=== PATIENT | female | born 1980 | race Hispanic/Latino ===

== ENCOUNTER 2016-10-25 18:27 | Emergency (ER) | payer MEDICAID ==
[2016-10-25 19:11] LABS: Basophils % (Auto) 0.3 % (0.0-1.8); Eosinophils % (Auto) 0.3 % (0.0-4.3); Hemoglobin 12.2 gm/dl (10.1-14.3); Mean Corpuscular HGB Conc 32 % (30-34); Mean Corpuscular Hemoglobin 28 pg (28-32); Mean Corpuscular Volume 87 fl (79-97); Platelet Count 295 K/mm3 (140-440); Red Blood Count 4.37 M/mm3 (3.65-5.03); Red Cell Distribution Width 13.9 % (13.2-15.2)
[2016-10-25 19:53] LABS: Alanine Aminotransferase 16 units/L (7-56); Albumin 4.2 g/dL (3.9-5); Albumin/Globulin Ratio 1.2 %; Alkaline Phosphatase 80 units/L (35-129); Anion Gap 20 mmol/L; BUN/Creatinine Ratio 12.85; Blood Urea Nitrogen 9 mg/dL (7-17); Calcium 9.1 mg/dL (8.4-10.2); Carbon Dioxide 22 mmol/L (22-30); Chloride 100.2 mmol/L (98-107); Glucose 115 mg/dL (65-100); Lipase 17 units/L (13-60); Potassium 4.4 mmol/L (3.6-5.0); Sodium 138 mmol/L (137-145); Total Protein 7.8 g/dL (6.3-8.2)
[2016-10-25] MEDS ORDERED: MORPHINE IV ONE (19:55)
[2016-10-25] MEDS ORDERED: NACL 0.9% 1000 ML 1,000 ML IV ONE (19:55)
[2016-10-25] MEDS ORDERED: ZOFRAN IV ONE (19:55)
[2016-10-25 20:06] LABS: Bilirubin,Urine NEG (Negative); Blood,Urine LG (Negative); Ketones,Urine TR mg/dL (Negative); Leukocyte Esterase,Urine NEG (Negative); Mucus,Urine 2+ /HPF; Nitrite,Urine NEG (Negative)
[2016-10-25 20:08] LABS: RBC,Urine > 182.0 /HPF (0.0-6.0)
[2016-10-25] MEDS ORDERED: TORADOL IV ONE (20:29)
[2016-10-25] MEDS ORDERED: DILAUDID IV ONE ×2 (20:29→22:48)
[2016-10-25] MEDS ORDERED: NACL ONE (20:43)
--- NOTE | 2016-10-25 21:40 | Cat Scan Report ---
FINAL REPORT EXAM: CT ABDOMEN PELVIS W CON HISTORY: lower abd pain, blood in urine TECHNIQUE: Spiral CT scanning of the abdomen and pelvis after the uneventful administration of IV contrast. Multiplanar reformations. 100 mL Isovue IV. PRIORS: None. FINDINGS: Abdomen: Visualized lung bases grossly unremarkable. Mild dilatation of the right renal collecting system and right perinephric fat stranding without apparent right renal calcifications. Gallbladder surgically absent, with biliary duct prominence probably postsurgical. Nodular density in the left adrenal gland measures approximately 1.4 cm. Remainder of visualized abdominal parenchyma without significant abnormalities. Pelvis: Approximately 4 x 6 mm calcification noted in the right distal ureter mildly proximal to the UVJ, with diffuse ureteral dilatation. Bowel grossly unremarkable. Appendix not confidently identified and probably surgically absent. No significant free peritoneal fluid or apparent adenopathy. Abdominal aorta non-aneurysmal. Cystic focus in the left ovary measures approximately 2 cm. Small, fat-containing umbilical hernia. IMPRESSION: 1. Right distal ureteral calculus and mild right hydronephrosis. 2. Left adrenal nodule may represent adenomatous change, but is indeterminate. Followup may be warranted. 3. Probable follicular change in the left ovary.
--- NOTE | 2016-10-25 22:02 | Emergency Department Report ---
ED Abdominal Pain HPI - General Chief Complaint: Abdominal Pain Stated Complaint: ABD PAIN Time Seen by Provider: 10/25/16 20:26 Source: patient Mode of arrival: Ambulatory Limitations: No Limitations - History of Present Illness Initial Comments: 36-year-old female presented to the hospital with complaints of sudden onset of right lower quadrant and area 2 hours. Pain is constant, sharp, worse palpation and rated 10/10 in intensity. No alleviating factors. Positive nausea without vomiting. Patient denies dysuria, fever, or hematuria but urine is darker in color. No previous history of kidney stones. Severity scale (0 -10): 10 - Related Data Previous Rx's Medication Instructions Recorded Last Taken Type Ibuprofen [Motrin] 800 mg PO Q8HR PRN #30 tablet 10/25/16 Unknown Rx Ondansetron [Zofran Odt] 4 mg PO Q8HR PRN #20 tab.rapdis 10/25/16 Unknown Rx Oxycodone HCl/Acetaminophen 1 each PO Q6HR PRN #20 tablet 10/25/16 Unknown Rx [Percocet 10/325 mg] Tamsulosin [Flomax] 0.4 mg PO QDAY #7 cap 10/25/16 Unknown Rx Allergies Allergy/AdvReac Type Severity Reaction Status Date / Time No Known Allergies Allergy Unverified 10/25/16 18:52 ED Review of Systems ROS: Stated complaint: ABD PAIN Other details as noted in HPI Comment: All other systems reviewed and negative Other: Constitutional: No fevers chills Eyes: No eye pain visual changes ENT: No ear pain or throat pain Neck: Denies pain Respiratory: Denies cough wheezing shortness of breath Cardiovascular: Denies chest pain, palpitations, syncope GI: As per HPI : Denies dysuria Musculoskeletal: Denies back pain, joint swelling Skin: Denies rash, lesions, erythema Neurologic: Denies headache, numbness, weakness Psychiatric: Denies suicidal ideation, hallucinations ED Past Medical Hx - Past Medical History Previous Medical History?: No - Surgical History Past Surgical History?: Yes Hx Cholecystectomy: Yes Hx Appendectomy: Yes Additional Surgical History: Tubal ligation - Social History Smoking Status: Current Every Day Smoker Substance Use Type: None - Medications Home Medications: Home Medications Medication Instructions Recorded Confirmed Last Taken Type Ibuprofen [Motrin] 800 mg PO Q8HR PRN #30 tablet 10/25/16 Unknown Rx Ondansetron [Zofran Odt] 4 mg PO Q8HR PRN #20 tab.rapdis 10/25/16 Unknown Rx Oxycodone HCl/Acetaminophen 1 each PO Q6HR PRN #20 tablet 10/25/16 Unknown Rx [Percocet 10/325 mg] Tamsulosin [Flomax] 0.4 mg PO QDAY #7 cap 10/25/16 Unknown Rx ED Physical Exam - General Limitations: No Limitations - Other Other exam information: General: Positive distress secondary to significant pain Head exam: Atraumatic, normocephalic Eyes exam: Normal appearance ENT: Moist mucous membrane, normal oropharynx Neck exam: Normal inspection, full range of motion, no meningismus nontender Respiratory exam: Clear to auscultation bilateral, no wheezes, rales, crackles Cardiovascular: Normal rate and rhythm, normal heart sounds Abdomen: Soft, nondistended, and right lower quadrant and suprapubic tenderness to palpation, with normal bowel sounds, no rebound, or guarding Extremity: Full range of motion normal inspection no deformity Back: Normal Inspection, full range of motion, no tenderness Neurologic: Alert, oriented x3, cranial nerves intact, no motor or sensory deficit Psychiatric: normal affect, normal mood Skin: Warm, dry, intact ED Course Vital Signs 10/25/16 10/25/16 10/25/16 19:15 19:31 19:46 Temperature 95.5 F L Pulse Rate 63 63 Respiratory 17 11 L Rate Blood Pressure 133/79 O2 Sat by Pulse 99 100 Oximetry 10/25/16 10/25/16 10/25/16 20:00 20:15 20:30 Temperature Pulse Rate 64 60 53 L Respiratory 10 L 20 11 L Rate Blood Pressure 143/80 144/84 154/90 O2 Sat by Pulse 100 97 100 Oximetry 10/25/16 10/25/16 10/25/16 20:45 21:51 22:00 Temperature Pulse Rate 81 68 Respiratory 15 10 L Rate Blood Pressure 154/90 154/90 133/81 O2 Sat by Pulse 100 97 Oximetry 10/25/16 10/25/16 10/25/16 22:15 22:30 22:46 Temperature Pulse Rate 77 59 L 78 Respiratory 13 16 10 L Rate Blood Pressure 113/75 94/39 130/61 O2 Sat by Pulse 97 98 100 Oximetry - Reevaluation(s) Reevaluation #1: 10/25/16 23:43 Improvement with the treatment. ED Medical Decision Making - Lab Data Result diagrams: 10/25/16 19:01 10/25/16 19:01 Lab Results 10/25/16 10/25/16 10/25/16 Range/Units 19:01 19:01 19:02 WBC 10.0 (4.5-11.0) K/mm3 RBC 4.37 (3.65-5.03) M/mm3 Hgb 12.2 (10.1-14.3) gm/dl Hct 38.0 (30.3-42.9) % MCV 87 (79-97) fl MCH 28 (28-32) pg MCHC 32 (30-34) % RDW 13.9 (13.2-15.2) % Plt Count 295 (140-440) K/mm3 Lymph % (Auto) 12.1 L (13.4-35.0) % Leake % (Auto) 2.6 (0.0-7.3) % Eos % (Auto) 0.3 (0.0-4.3) % Baso % (Auto) 0.3 (0.0-1.8) % Lymph # 1.2 (1.2-5.4) K/mm3 Leake # 0.3 (0.0-0.8) K/mm3 Eos # 0.0 (0.0-0.4) K/mm3 Baso # 0.0 (0.0-0.1) K/mm3 Seg Neutrophils % 84.7 H (40.0-70.0) % Seg Neutrophils # 8.5 H (1.8-7.7) K/mm3 Sodium 138 (137-145) mmol/L Potassium 4.4 (3.6-5.0) mmol/L Chloride 100.2 (98-107) mmol/L Carbon Dioxide 22 (22-30) mmol/L Anion Gap 20 mmol/L BUN 9 (7-17) mg/dL Creatinine 0.7 (0.7-1.2) mg/dL Estimated GFR > 60 ml/min BUN/Creatinine Ratio 12.85 % Glucose 115 H (65-100) mg/dL Lactic Acid 1.10 (0.7-2.0) mmol/L Calcium 9.1 (8.4-10.2) mg/dL Total Bilirubin 0.60 (0.1-1.2) mg/dL AST 20 (5-40) units/L ALT 16 (7-56) units/L Alkaline Phosphatase 80 (35-129) units/L Total Protein 7.8 (6.3-8.2) g/dL Albumin 4.2 (3.9-5) g/dL Albumin/Globulin Ratio 1.2 % Lipase 17 (13-60) units/L Urine Color (Yellow) Urine Turbidity (Clear) Urine pH (5.0-7.0) Ur Specific Imperial (1.003-1.030) Urine Protein (Negative) mg/dL Urine Glucose (UA) (Negative) mg/dL Urine Ketones (Negative) mg/dL Urine Blood (Negative) Urine Nitrite (Negative) Urine Bilirubin (Negative) Urine Urobilinogen (<2.0) mg/dL Ur Leukocyte Esterase (Negative) Urine WBC (Auto) (0.0-6.0) /HPF Urine RBC (Auto) (0.0-6.0) /HPF U Epithel Cells (Auto) (0-13.0) /HPF Urine Mucus /HPF Urine HCG, Qual (Negative) 10/25/16 Range/Units 19:52 WBC (4.5-11.0) K/mm3 RBC (3.65-5.03) M/mm3 Hgb (10.1-14.3) gm/dl Hct (30.3-42.9) % MCV (79-97) fl MCH (28-32) pg MCHC (30-34) % RDW (13.2-15.2) % Plt Count (140-440) K/mm3 Lymph % (Auto) (13.4-35.0) % Leake % (Auto) (0.0-7.3) % Eos % (Auto) (0.0-4.3) % Baso % (Auto) (0.0-1.8) % Lymph # (1.2-5.4) K/mm3 Leake # (0.0-0.8) K/mm3 Eos # (0.0-0.4) K/mm3 Baso # (0.0-0.1) K/mm3 Seg Neutrophils % (40.0-70.0) % Seg Neutrophils # (1.8-7.7) K/mm3 Sodium (137-145) mmol/L Potassium (3.6-5.0) mmol/L Chloride (98-107) mmol/L Carbon Dioxide (22-30) mmol/L Anion Gap mmol/L BUN (7-17) mg/dL Creatinine (0.7-1.2) mg/dL Estimated GFR ml/min BUN/Creatinine Ratio % Glucose (65-100) mg/dL Lactic Acid (0.7-2.0) mmol/L Calcium (8.4-10.2) mg/dL Total Bilirubin (0.1-1.2) mg/dL AST (5-40) units/L ALT (7-56) units/L Alkaline Phosphatase (35-129) units/L Total Protein (6.3-8.2) g/dL Albumin (3.9-5) g/dL Albumin/Globulin Ratio % Lipase (13-60) units/L Urine Color Erica (Yellow) Urine Turbidity Cloudy (Clear) Urine pH 6.0 (5.0-7.0) Ur Specific Imperial 1.024 (1.003-1.030) Urine Protein 100 mg/dl (Negative) mg/dL Urine Glucose (UA) Neg (Negative) mg/dL Urine Ketones Tr (Negative) mg/dL Urine Blood Lg (Negative) Urine Nitrite Neg (Negative) Urine Bilirubin Neg (Negative) Urine Urobilinogen 2.0 (<2.0) mg/dL Ur Leukocyte Esterase Neg (Negative) Urine WBC (Auto) 1.0 (0.0-6.0) /HPF Urine RBC (Auto) > 182.0 (0.0-6.0) /HPF U Epithel Cells (Auto) 3.0 (0-13.0) /HPF Urine Mucus 2+ /HPF Urine HCG, Qual Negative (Negative) - Radiology Data Radiology results: report reviewed CT ABDOMEN AND PELVIS iv CONTRAST: RIGHT DISTAL URETER calculus WITH MILD RIGHT HYDRONEPHROSIS, 4 X 6 millimeter stone proximal to the UVJ with diffuse ureteral consultation. Left adrenal nodule may represent adenomatous change for this intermittent. Follow-up may be warranted. Possible follicular changes in the left ovary - Differential Diagnosis renal colic, ectopic , ruptured viscus, PID Critical Care Time: No Critical care attestation.: If time is entered above; I have spent that time in minutes in the direct care of this critically ill patient, excluding procedure time. ED Disposition Clinical Impression: Renal colic on right side Disposition: DC-01 TO HOME OR SELFCARE Is pt being admited?: No Does the pt Need Aspirin: No Condition: Stable Instructions: Renal Colic (ED) Additional Instructions: Take the medications as prescribed. Follow up with the urologist provided the urologist up your choice. Please return if symptoms worsen. Prescriptions: Ibuprofen [Motrin] 800 mg PO Q8HR PRN #30 tablet PRN Reason: Pain Ondansetron [Zofran Odt] 4 mg PO Q8HR PRN #20 tab.rapdis PRN Reason: Pain Oxycodone HCl/Acetaminophen [Percocet 10/325 mg] 1 each PO Q6HR PRN #20 tablet PRN Reason: Pain Tamsulosin [Flomax] 0.4 mg PO QDAY #7 cap Referrals: GILMER HODGE MD [Staff Physician] - 2-3 Days Time of Disposition: 23:47
[2016-10-26 00:12] VITALS: BP 114/59
== END 2016-10-26 00:12 | disposition home or self-care (01) ==
LOC: ED 18:27
DX: N23 Unspecified renal colic (principal); F17.210 Nicotine dependence, cigarettes, uncomplicated
CPT/HCPCS: 36415; 74177; 80053; 81001; 81025; 82140; 83690; 85025; 96361; 96374; 96375; 96376; 99284; J1170; J1885; J2270; J2405; J7030; Q9967